=== PATIENT | female | born 1985 | race Caucasian/White ===

== ENCOUNTER 2024-12-21 09:20 | Emergency (ER) | payer OTHER, SELFPAY ==
[2024-12-21 10:00] VITALS: BP 134/91; PULSE 80; RESP 16; TEMP 36.6; O2SAT 100
--- NOTE | 2024-12-21 13:36 | ED_ITS ---
HPI - Ear Problem General Chief complaint: Ear Stated complaint: can't hear out of left ear Time Seen by Provider: 12/21/24 09:26 History of Present Illness HPI Narrative: Patient recently diagnosed with AOM on abx last few days; concerned she still doesn't have full hearing from L ear. Related Data Allergies Allergy/AdvReac Type Severity Reaction Status Date / Time bacitracin Allergy Mild RASH Verified 11/10/23 13:29 neomycin Allergy Mild RASH Verified 11/10/23 13:29 polymyxin B Allergy Mild RASH Verified 11/10/23 13:29 Review of Systems Review of Systems: All systems reviewed & are unremarkable except as noted in HPI and below PMFSH Past Medical History Medical History Anxiety Social History Social History Smoking status: Never smoker Second hand tobacco smoke exposure: No Alcohol intake: never Substance use: current Substance use type: marijuana Other substance usage details: 2-3 x week; for relaxation Lack of Transportation: No Lack of Food: Never True Current Housing: I Have Housing Concerned About Future Housing: No Difficulty Paying Gas/Electric Bills: No Difficulty Paying for Meds: No Currently Unemployed: No Education: Trade/Vocational Certificate Difficulty w/ Childcare or Family Care: No Living arrangements: with family Gender identity (if verbalized by the patient): Female Spiritual care concerns: No Agree to blood products: Yes Exam Narrative: EXAMINATION OF ORGAN SYSTEMS/BODY AREAS: Constitutional: Vital signs per nursing GENERAL:[No acute distress, non-toxic appearing.] HEAD: Normal with no signs of head trauma. EYES: EOMI, conjunctiva normal ENT: Erythematous, bulging left TM LUNGS: Nonlabored breathing. HEART: [Regular rate and rhythm] ABD: [Soft], [nontender to palpation] EXT: Normal range of motion SKIN: [No rashes or lesions.] NEURO: [Alert and oriented x 3. No gross focal sensory or strength deficits.] PSYCH: Normal affect Course Vital Signs Vital signs: Vital Signs Temperature 97.8 F 12/21/24 10:00 Pulse Rate 80 12/21/24 10:00 Respiratory Rate 16 12/21/24 10:00 Blood Pressure 134/91 H 12/21/24 10:00 Pulse Oximetry 100 12/21/24 10:00 Oxygen Delivery Room Air 12/21/24 10:00 Temperature 97.8 F 12/21/24 10:00 Pulse Rate 80 12/21/24 10:00 Respiratory Rate 16 12/21/24 10:00 Blood Pressure 134/91 H 12/21/24 10:00 Pulse Oximetry 100 12/21/24 10:00 Oxygen Delivery Room Air 12/21/24 10:00 Medical Decision Making [facility] Narrative Medical decision making narrative: Patient recently diagnosed with AOM on abx last few days; concerned she still doesn't have full hearing from L ear. On exam she does have findings c/w AOM; d/w pt she may have persistent pain/diminished hearing until infxn resolves and may take more than 3 days. F/u to ENT provided. She is already on augmentin which I feel is appropriate. Pt agreeable to plan. Vital Signs Vital Signs: Vital Signs Temperature 97.8 F 12/21/24 10:00 Pulse Rate 80 12/21/24 10:00 Respiratory Rate 16 12/21/24 10:00 Blood Pressure 134/91 H 12/21/24 10:00 Pulse Oximetry 100 12/21/24 10:00 Oxygen Delivery Room Air 12/21/24 10:00 Temperature 97.8 F 12/21/24 10:00 Pulse Rate 80 12/21/24 10:00 Respiratory Rate 16 12/21/24 10:00 Blood Pressure 134/91 H 12/21/24 10:00 Pulse Oximetry 100 12/21/24 10:00 Oxygen Delivery Room Air 12/21/24 10:00 Discharge Plan Discharge Clinical Impression: Acute otitis media Patient Disposition: Home Condition: Stable Instructions: Ear Infection (ED) Additional Instructions: Please follow-up with the earrings fabricator. Continue with the antibiotics. If you still have problems hearing, you may need further evaluation and to be started on other medications such as steroids. You can always return for any further issues. Patient Language: [place] Prescriptions: No Action ondansetron HCl 4 mg tablet 4 mg PO Q8H PRN (Reason: nausea and vomiting) Qty: 30 0RF sumatriptan succinate [Imitrex] 50 mg tablet 50 mg PO Q2H PRN (Reason: migraine headache) Qty: 10 3RF Rx Instructions: May repeat dose in 2 hours prn sertraline 50 mg tablet 50 mg PO DAILY Qty: 90 0RF Follow-up/Referrals: Aisha Machuca MD [Primary Care Provider] - Davonte Yeboah MD [Physician] - 2 Days
== END 2024-12-21 10:17 | disposition home or self-care (01) ==
LOC: ANHED 09:38
PROVIDERS: Emergency Provider Emergency Medicine; PCP Family Medicine
DX: H66.92 Otitis media, unspecified, left ear (principal)
CPT/HCPCS: 99281